=== PATIENT | female | born 1940 | race Caucasian/White ===

== ENCOUNTER 2018-07-31 07:50 | Emergency (ER) | payer OTHER ==
[2018-07-31] MEDS: SOD CHLORIDE 0.9% 1,000 ML IV (08:32)
[2018-07-31 08:38] LABS: ADD MAN DIFF? NO
[2018-07-31 08:43] LABS: WHITE BLOOD COUNT 7.7 10^3/ul (4.8-10.8)
[2018-07-31 08:43] LABS: BASOPHIL # 0.1 10^3/ul (0.0-0.1); BASOPHILS % 0.8 % (0.0-2.0); EOSINOPHILS % 0.4 % (0.0-7.0); HEMATOCRIT 30.6 % (37.0-47.0); HEMOGLOBIN 10.2 g/dl (12.0-16.0); LYMPHOCYTES # 0.8 10^3/ul (0.8-2.9); LYMPHOCYTES % 10.7 % (15.0-51.0); MEAN CORPUSCULAR HEMOGLOBIN 28.7 pg (29.0-33.0); MEAN CORPUSCULAR HGB CONC 33.3 g/dl (32.0-37.0); MONOCYTE # 0.6 10^3/ul (0.3-0.9); MONOCYTES % 7.5 % (0.0-11.0); NEUTROPHIL # 6.2 10^3/ul (1.6-7.5); NEUTROPHILS % 80.3 % (39.0-77.0); PLATELET COUNT 274 10^3/UL (140-415); RED BLOOD COUNT 3.56 10^6/ul (4.20-5.40); RED CELL DISTRIBUTION WIDTH 12.6 % (11.5-14.5)
[2018-07-31 09:01] LABS: INR 1.16; PT RATIO 1.2
[2018-07-31 09:02] LABS: PARTIAL THROMBOPLASTIN TIME 34.1 Sec (23.0-35.0)
[2018-07-31 09:06] LABS: ALANINE AMINOTRANSFERASE 20 IU/L (13-69); ALBUMIN 4.4 g/dl (3.3-4.9); ALBUMIN/GLOBULIN RATIO 1.25; ALKALINE PHOSPHATASE 91 IU/L (42-121); ANION GAP 15 (5-13); ASPARTATE AMINO TRANSFERASE 33 IU/L (15-46); BILIRUBIN,INDIRECT 0.8 mg/dl (0-1.1); BILIRUBIN,TOTAL 0.8 mg/dl (0.2-1.3); BLOOD UREA NITROGEN 24 mg/dl (7-20); CALCIUM 9.7 mg/dl (8.4-10.2); CARBON DIOXIDE 24 mmol/L (21-31); CHLORIDE 93 mmol/L (97-110); GLUCOSE 153 mg/dl (70-220); LIPASE 79 U/L (23-300); POTASSIUM 4.6 mmol/L (3.5-5.1); SODIUM 132 mmol/L (135-144); TOTAL PROTEIN 7.9 g/dl (6.1-8.1)
[2018-07-31 09:17] LABS: ADD UMIC YES; UR ASCORBIC ACID NEGATIVE (NEGATIVE); UR BILIRUBIN (Dip) NEGATIVE (NEGATIVE); UR BLOOD (Dip) NEGATIVE (NEGATIVE); UR CLARITY CLEAR (CLEAR); UR COLOR YELLOW (YELLOW); UR GLUCOSE (Dip) NEGATIVE (NEGATIVE); UR KETONES (Dip) TRACE mg/dL (NEGATIVE); UR LEUKOCYTE ESTERASE (Dip) TRACE Leu/ul (NEGATIVE); UR NITRITE (Dip) NEGATIVE (NEGATIVE); UR RBC 1 /HPF (0-5); UR SPECIFIC GRAVITY (Dip) 1.015 (1.003-1.030); UR TOTAL PROTEIN (Dip) NEGATIVE (NEGATIVE); UR UROBILINOGEN (Dip) NEGATIVE (NEGATIVE); UR WBC 4 /HPF (0-5)
[2018-07-31] MEDS: FUROSEMIDE 40 MG INJ IV (09:43)
== END 2018-07-31 09:52 | disposition home or self-care (01) ==
LOC: E/R 07:50
DX: R60.9 Edema, unspecified (principal); E11.9 Type 2 diabetes mellitus without complications; I11.0 Hypertensive heart disease with heart failure; I50.9 Heart failure, unspecified; Z79.84 Long term (current) use of oral hypoglycemic drugs; Z86.73 Personal history of transient ischemic attack (TIA), and cerebral infarction without residual deficits
CPT/HCPCS: 36415; 80053; 81001; 83690; 85025; 85610; 85730; 93005; 96374; 99284-25

== ENCOUNTER 2018-09-15 14:44 | Inpatient (IN) | payer OTHER ==
[2018-09-15] MEDS: ALBUTEROL 0.5% (NEB) 2.5 MG/0.5 ML AMP INH (17:24)
[2018-09-15 17:28] LABS: ADD MAN DIFF? NO
[2018-09-15] MEDS: IBUPROFEN 600 MG TAB PO (17:28)
[2018-09-15] MEDS: SODIUM CHLORIDE 0.9% 1L BAG IV* (17:28)
[2018-09-15] MEDS: CEFTRIAXONE 1 GM/50 ML (PMX) 50 ML IVPB (17:28)
[2018-09-15 17:38] LABS: WHITE BLOOD COUNT 9.9 10^3/ul (4.8-10.8)
[2018-09-15 17:38] LABS: BASOPHILS % 0.4 % (0.0-2.0); EOSINOPHILS % 0.1 % (0.0-7.0); HEMATOCRIT 32.1 % (37.0-47.0); HEMOGLOBIN 10.8 g/dl (12.0-16.0); LYMPHOCYTES # 0.8 10^3/ul (0.8-2.9); LYMPHOCYTES % 7.7 % (15.0-51.0); MEAN CORPUSCULAR HEMOGLOBIN 27.8 pg (29.0-33.0); MEAN CORPUSCULAR HGB CONC 33.6 g/dl (32.0-37.0); MEAN CORPUSCULAR VOLUME 82.5 fl (82.0-101.0); MONOCYTE # 0.7 10^3/ul (0.3-0.9); MONOCYTES % 6.7 % (0.0-11.0); NEUTROPHIL # 8.4 10^3/ul (1.6-7.5); NEUTROPHILS % 84.7 % (39.0-77.0); PLATELET COUNT 232 10^3/UL (140-415); RED BLOOD COUNT 3.89 10^6/ul (4.20-5.40); RED CELL DISTRIBUTION WIDTH 13.3 % (11.5-14.5)
[2018-09-15 17:54] LABS: ALANINE AMINOTRANSFERASE 14 IU/L (13-69); ALBUMIN 4.6 g/dl (3.3-4.9); ALBUMIN/GLOBULIN RATIO 1.21; ALKALINE PHOSPHATASE 95 IU/L (42-121); ANION GAP 18 (5-13); ASPARTATE AMINO TRANSFERASE 28 IU/L (15-46); BILIRUBIN,INDIRECT 0.5 mg/dl (0-1.1); BILIRUBIN,TOTAL 0.5 mg/dl (0.2-1.3); BLOOD UREA NITROGEN 15 mg/dl (7-20); CALCIUM 9.3 mg/dl (8.4-10.2); CARBON DIOXIDE 31 mmol/L (21-31); CHLORIDE 83 mmol/L (97-110); GLUCOSE 158 mg/dl (70-220); LIPASE 47 U/L (23-300); POTASSIUM 3.9 mmol/L (3.5-5.1); SODIUM 132 mmol/L (135-144); TOTAL PROTEIN 8.4 g/dl (6.1-8.1)
[2018-09-15 18:05] LABS: INR 1.66; PROTIME 19.7 Sec (11.9-14.9); PT RATIO 1.5; TROPONIN-I < 0.012 ng/ml (0.000-0.120)
[2018-09-15 18:06] LABS: PARTIAL THROMBOPLASTIN TIME 40.9 Sec (23.0-35.0)
[2018-09-15 18:09] LABS: ADD UMIC YES; UR ASCORBIC ACID NEGATIVE (NEGATIVE); UR BACTERIA FEW /HPF (NONE SEEN); UR BILIRUBIN (Dip) NEGATIVE (NEGATIVE); UR BLOOD (Dip) 2+ mg/dL (NEGATIVE); UR CLARITY CLOUDY (CLEAR); UR COLOR YELLOW (YELLOW); UR GLUCOSE (Dip) NEGATIVE (NEGATIVE); UR KETONES (Dip) NEGATIVE (NEGATIVE); UR LEUKOCYTE ESTERASE (Dip) 2+ Leu/ul (NEGATIVE); UR NITRITE (Dip) NEGATIVE (NEGATIVE); UR RBC 11 /HPF (0-5); UR SPECIFIC GRAVITY (Dip) 1.011 (1.003-1.030); UR SQUAMOUS EPITHELIAL CELL MODERATE /HPF (FEW); UR TOTAL PROTEIN (Dip) 1+ mg/dl (NEGATIVE); UR UROBILINOGEN (Dip) NEGATIVE (NEGATIVE); UR WBC > 182 /HPF (0-5)
[2018-09-15] MEDS: AZITHROMYCIN 500MG/NS (PMX) 250 ML IVPB (18:32)
[2018-09-15] MEDS ORDERED: GLUCAGON 1 MG INJ IM (19:00)
[2018-09-15] MEDS ORDERED: ONDANSETRON 4 MG INJ IV (19:00)
[2018-09-15] MEDS ORDERED: GLUCOSE GEL 15 GRAM TUBE PO ×2 (19:00)
[2018-09-15] MEDS ORDERED: GLUCOSE GEL 15 GRAM TUBE BUCCAL (19:00)
[2018-09-15] MEDS ORDERED: LABETALOL HCL 20MG INJ IV (19:00)
[2018-09-15] MEDS ORDERED: DEXTROSE 50% 50 ML SYRINGE IV ×2 (19:00)
[2018-09-15 22:03] LABS: LACTIC ACID 1.2 mmol/L (0.5-2.0)
[2018-09-15] MEDS: ALBUTEROL/IPRATROPIUM (NEB) 3 ML AMP HHN (22:28)
[2018-09-15] MEDS: INSULIN ASPART [NOVOLOG] 3 ML PEN SC (22:56)
[2018-09-15] MEDS: GUAIFENESIN/CODEINE 5ML CUP PO (23:00)
[2018-09-15] MEDS: LEVOFLOXACIN 500MG/D5W (PMX) 100 ML IVPB (23:05)
[2018-09-16] MEDS: ACCU-CHEK XX (02:00)
[2018-09-16] MEDS: CEPASTAT LOZENGE MT ×2 (03:00→05:40)
[2018-09-16] MEDS: ACETAMINOPHEN 325 MG TAB PO (05:40)
[2018-09-16 06:33] LABS: ADD MAN DIFF? NO
[2018-09-16 06:42] LABS: WHITE BLOOD COUNT 14.3 10^3/ul (4.8-10.8)
[2018-09-16 06:42] LABS: ABNORMAL IP MESSAGE 1; BASOPHILS % 0.1 % (0.0-2.0); HEMATOCRIT 29.6 % (37.0-47.0); LYMPHOCYTES # 0.5 10^3/ul (0.8-2.9); LYMPHOCYTES % 3.1 % (15.0-51.0); MEAN CORPUSCULAR HEMOGLOBIN 27.5 pg (29.0-33.0); MEAN CORPUSCULAR HGB CONC 33.8 g/dl (32.0-37.0); MEAN CORPUSCULAR VOLUME 81.5 fl (82.0-101.0); MEAN PLATELET VOLUME 10.2 fl (7.4-10.4); MONOCYTES % 6.7 % (0.0-11.0); NEUTROPHIL # 12.8 10^3/ul (1.6-7.5); NEUTROPHILS % 89.5 % (39.0-77.0); PLATELET COUNT 210 10^3/UL (140-415); RED BLOOD COUNT 3.63 10^6/ul (4.20-5.40); RED CELL DISTRIBUTION WIDTH 13.3 % (11.5-14.5)
[2018-09-16 06:47] LABS: POSITIVE DIFF @See below
[2018-09-16 07:06] LABS: ALANINE AMINOTRANSFERASE 20 IU/L (13-69); ALBUMIN 4.1 g/dl (3.3-4.9); ALBUMIN/GLOBULIN RATIO 1.24; ALKALINE PHOSPHATASE 83 IU/L (42-121); ANION GAP 15 (5-13); ASPARTATE AMINO TRANSFERASE 27 IU/L (15-46); BILIRUBIN,INDIRECT 0.6 mg/dl (0-1.1); BILIRUBIN,TOTAL 0.6 mg/dl (0.2-1.3); BLOOD UREA NITROGEN 18 mg/dl (7-20); CALCIUM 9.2 mg/dl (8.4-10.2); CARBON DIOXIDE 30 mmol/L (21-31); CHLORIDE 87 mmol/L (97-110); CREATININE 0.73 mg/dl (0.44-1.00); GLUCOSE 161 mg/dl (70-220); POTASSIUM 3.5 mmol/L (3.5-5.1); SODIUM 132 mmol/L (135-144); TOTAL PROTEIN 7.4 g/dl (6.1-8.1)
[2018-09-16 07:46] LABS: HEMOGLOBIN A1C 7.7 % (0-5.9)
[2018-09-16] MEDS: FUROSEMIDE 40 MG TAB PO (09:00)
[2018-09-16] MEDS: APIXABAN 5 MG TABLET PO ×2 (09:11→20:55)
[2018-09-16] MEDS: METOPROLOL (XL) 25 MG TAB PO (09:12)
[2018-09-16] MEDS: AMLODIPINE 10 MG TAB PO (09:12)
[2018-09-16] MEDS: SPIRONOLACTONE 25 MG TAB PO (09:13)
[2018-09-16] MEDS: BENAZEPRIL 10 MG TAB PO (09:13)
[2018-09-16] MEDS: FUROSEMIDE 40 MG INJ IV (09:13)
[2018-09-16] MEDS: INSULIN ASPART [NOVOLOG] 3 ML PEN SC ×4 (09:23→21:00)
[2018-09-16] MEDS: metFORMIN 850 MG TAB PO ×2 (11:48→17:29)
[2018-09-16] MEDS: ALBUTEROL/IPRATROPIUM (NEB) 3 ML AMP HHN ×3 (12:22→20:08)
[2018-09-16] MEDS: DIGOXIN 0.125 MG TAB PO (13:32)
[2018-09-16] MEDS: CEFEPIME 1GM/50 ML (PMX) 50 ML IVPB ×2 (15:28→20:57)
[2018-09-16] MEDS: ATORVASTATIN 10 MG TAB PO (20:54)
[2018-09-17] MEDS: ACCU-CHEK XX (02:00)
[2018-09-17 06:43] LABS: ADD MAN DIFF? NO; HAAIG REFLEX REFLEX FILED
[2018-09-17 06:50] LABS: WHITE BLOOD COUNT 11.1 10^3/ul (4.8-10.8)
[2018-09-17 06:50] LABS: BASOPHILS % 0.3 % (0.0-2.0); EOSINOPHILS % 0.1 % (0.0-7.0); HEMATOCRIT 29.7 % (37.0-47.0); HEMOGLOBIN 9.8 g/dl (12.0-16.0); LYMPHOCYTES # 0.9 10^3/ul (0.8-2.9); LYMPHOCYTES % 8.3 % (15.0-51.0); MEAN CORPUSCULAR HEMOGLOBIN 27.1 pg (29.0-33.0); MEAN CORPUSCULAR VOLUME 82.3 fl (82.0-101.0); MEAN PLATELET VOLUME 10.1 fl (7.4-10.4); MONOCYTE # 0.7 10^3/ul (0.3-0.9); MONOCYTES % 6.4 % (0.0-11.0); NEUTROPHIL # 9.4 10^3/ul (1.6-7.5); NEUTROPHILS % 84.3 % (39.0-77.0); PLATELET COUNT 221 10^3/UL (140-415); RED BLOOD COUNT 3.61 10^6/ul (4.20-5.40); RED CELL DISTRIBUTION WIDTH 13.5 % (11.5-14.5)
[2018-09-17 07:11] LABS: ALANINE AMINOTRANSFERASE 22 IU/L (13-69); ALBUMIN 3.9 g/dl (3.3-4.9); ALBUMIN/GLOBULIN RATIO 1.21; ALKALINE PHOSPHATASE 72 IU/L (42-121); ANION GAP 13 (5-13); ASPARTATE AMINO TRANSFERASE 24 IU/L (15-46); BILIRUBIN,INDIRECT 0.5 mg/dl (0-1.1); BILIRUBIN,TOTAL 0.5 mg/dl (0.2-1.3); BLOOD UREA NITROGEN 23 mg/dl (7-20); CALCIUM 9.1 mg/dl (8.4-10.2); CARBON DIOXIDE 31 mmol/L (21-31); CHLORIDE 90 mmol/L (97-110); CREATININE 0.76 mg/dl (0.44-1.00); GLUCOSE 153 mg/dl (70-220); POTASSIUM 3.8 mmol/L (3.5-5.1); SODIUM 134 mmol/L (135-144); TOTAL PROTEIN 7.1 g/dl (6.1-8.1)
[2018-09-17 07:39] LABS: HEPATITIS B SURFACE ANTIGEN NEGATIVE (NEGATIVE)
[2018-09-17 07:43] LABS: FERRITIN 41.7 ng/ml (11.1-264.0)
[2018-09-17] MEDS: ALBUTEROL/IPRATROPIUM (NEB) 3 ML AMP HHN ×3 (07:51→20:22)
[2018-09-17] MEDS: INSULIN ASPART [NOVOLOG] 3 ML PEN SC ×4 (07:55→22:32)
[2018-09-17] MEDS: metFORMIN 850 MG TAB PO ×2 (07:55→17:55)
[2018-09-17 07:56] LABS: HEPATITIS B CORE ANTIBODY NEGATIVE (NEGATIVE); HEPATITIS C VIRAL ANTIBODY NEGATIVE (NEGATIVE)
[2018-09-17] MEDS: SPIRONOLACTONE 25 MG TAB PO (09:20)
[2018-09-17] MEDS: APIXABAN 5 MG TABLET PO (09:20)
[2018-09-17] MEDS: FUROSEMIDE 40 MG TAB PO (09:21)
[2018-09-17] MEDS: AMLODIPINE 10 MG TAB PO (09:21)
[2018-09-17] MEDS: METOPROLOL (XL) 25 MG TAB PO (09:22)
[2018-09-17] MEDS: BENAZEPRIL 10 MG TAB PO (09:23)
[2018-09-17] MEDS: CEFEPIME 1GM/50 ML (PMX) 50 ML IVPB ×2 (09:23→22:28)
[2018-09-17 13:40] LABS: ADD MAN DIFF? NO
[2018-09-17 13:41] LABS: WHITE BLOOD COUNT 9.2 10^3/ul (4.8-10.8)
[2018-09-17 13:41] LABS: BASOPHILS % 0.4 % (0.0-2.0); EOSINOPHILS % 0.2 % (0.0-7.0); HEMATOCRIT 27.5 % (37.0-47.0); HEMOGLOBIN 9.2 g/dl (12.0-16.0); LYMPHOCYTES # 0.8 10^3/ul (0.8-2.9); LYMPHOCYTES % 8.3 % (15.0-51.0); MEAN CORPUSCULAR HEMOGLOBIN 27.8 pg (29.0-33.0); MEAN CORPUSCULAR HGB CONC 33.5 g/dl (32.0-37.0); MEAN CORPUSCULAR VOLUME 83.1 fl (82.0-101.0); MONOCYTE # 0.7 10^3/ul (0.3-0.9); MONOCYTES % 7.7 % (0.0-11.0); NEUTROPHIL # 7.6 10^3/ul (1.6-7.5); NEUTROPHILS % 82.9 % (39.0-77.0); PLATELET COUNT 213 10^3/UL (140-415); RED BLOOD COUNT 3.31 10^6/ul (4.20-5.40); RED CELL DISTRIBUTION WIDTH 13.7 % (11.5-14.5)
[2018-09-17] MEDS: DIGOXIN 0.125 MG TAB PO (13:43)
[2018-09-17] MEDS: IOHEXOL 300MG/ML 150 ML BTL (18:22)
[2018-09-17] MEDS: SOD CHLORIDE 0.9% 100 ML (18:22)
[2018-09-17] MEDS: ATORVASTATIN 10 MG TAB PO (22:28)
[2018-09-18] MEDS: ACCU-CHEK XX (02:00)
[2018-09-18 07:20] LABS: ANION GAP 7 (5-13); BLOOD UREA NITROGEN 24 mg/dl (7-20); CALCIUM 9.2 mg/dl (8.4-10.2); CARBON DIOXIDE 33 mmol/L (21-31); CHLORIDE 94 mmol/L (97-110); CREATININE 0.84 mg/dl (0.44-1.00); GLUCOSE 134 mg/dl (70-220); POTASSIUM 3.4 mmol/L (3.5-5.1); SODIUM 134 mmol/L (135-144)
[2018-09-18] MEDS: ALBUTEROL/IPRATROPIUM (NEB) 3 ML AMP HHN ×3 (07:29→20:22)
[2018-09-18] MEDS: AMLODIPINE 10 MG TAB PO (08:11)
[2018-09-18] MEDS: SPIRONOLACTONE 25 MG TAB PO (08:11)
[2018-09-18] MEDS: BENAZEPRIL 10 MG TAB PO (08:11)
[2018-09-18] MEDS: CEFEPIME 1GM/50 ML (PMX) 50 ML IVPB ×2 (08:11→20:40)
[2018-09-18] MEDS: METOPROLOL (XL) 25 MG TAB PO (08:12)
[2018-09-18] MEDS: FUROSEMIDE 40 MG TAB PO (08:12)
[2018-09-18] MEDS: INSULIN ASPART [NOVOLOG] 3 ML PEN SC ×4 (08:27→20:43)
[2018-09-18] MEDS: metFORMIN 850 MG TAB PO ×2 (08:28→17:10)
[2018-09-18 11:51] LABS: SMOOTH MUSCLE AB SCREEN POSITIVE (NEGATIVE); SMOOTH MUSCLE AB TITER 1:20 titer (<1:20)
[2018-09-18] MEDS: DIGOXIN 0.125 MG TAB PO (12:25)
[2018-09-18 14:37] LABS: TOTAL PROTEIN 6.8 g/dl (6.1-8.1)
[2018-09-18] MEDS: LIDOCAINE 1% (MPF) 5 ML VIAL (14:44)
[2018-09-18] MEDS: POTASSIUM CHLORIDE (SR) 20 MEQ TAB PO (17:10)
[2018-09-18] MEDS: ATORVASTATIN 10 MG TAB PO (20:40)
[2018-09-19] MEDS: ALBUTEROL/IPRATROPIUM (NEB) 3 ML AMP HHN ×4 (00:30→16:00)
[2018-09-19 01:38] LABS: AADO2 Arterial 310.9 mmHg (7.0-24.0); Allen Test ACCEPTAB; Arterial Base Excess 2.8 mmol/L (-3.0-3); Arterial Blood Gas Oxygen Sat 95.5 mmHG (95.0-100.0); Arterial COHb 0 % (0.0-3.0); Arterial Fraction of Oxyhgb 95.3 % (93.0-99.0); Arterial HCO3 26.6 mmol/L (22.0-26.0); Arterial MetHb 0.2 % (0.0-1.5); Arterial pCO2 37.9 mmhg (35-45); MODE MASK - SIMPLE; Site Right Radial
[2018-09-19] MEDS: ACCU-CHEK XX (02:33)
[2018-09-19] MEDS: LEVOFLOXACIN 500 MG TAB PO (06:00)
[2018-09-19 06:08] LABS: ADD MAN DIFF? NO
[2018-09-19 06:09] LABS: BASOPHIL # 0.1 10^3/ul (0.0-0.1); BASOPHILS % 0.7 % (0.0-2.0); EOSINOPHILS # 0.1 10^3/ul (0.0-0.5); EOSINOPHILS % 0.8 % (0.0-7.0); HEMATOCRIT 29.6 % (37.0-47.0); HEMOGLOBIN 9.8 g/dl (12.0-16.0); LYMPHOCYTES # 0.9 10^3/ul (0.8-2.9); LYMPHOCYTES % 11.5 % (15.0-51.0); MEAN CORPUSCULAR HGB CONC 33.1 g/dl (32.0-37.0); MEAN CORPUSCULAR VOLUME 81.5 fl (82.0-101.0); MEAN PLATELET VOLUME 9.8 fl (7.4-10.4); MONOCYTE # 0.6 10^3/ul (0.3-0.9); MONOCYTES % 8.1 % (0.0-11.0); NEUTROPHIL # 5.8 10^3/ul (1.6-7.5); NEUTROPHILS % 78.5 % (39.0-77.0); PLATELET COUNT 257 10^3/UL (140-415); RED BLOOD COUNT 3.63 10^6/ul (4.20-5.40); RED CELL DISTRIBUTION WIDTH 13.5 % (11.5-14.5)
[2018-09-19 06:09] LABS: WHITE BLOOD COUNT 7.4 10^3/ul (4.8-10.8)
[2018-09-19 06:46] LABS: ANION GAP 10 (5-13)
[2018-09-19 06:52] LABS: BLOOD UREA NITROGEN 29 mg/dl (7-20); CALCIUM 9.2 mg/dl (8.4-10.2); CARBON DIOXIDE 29 mmol/L (21-31); CHLORIDE 93 mmol/L (97-110); GLUCOSE 151 mg/dl (70-220); POTASSIUM 3.7 mmol/L (3.5-5.1); SODIUM 132 mmol/L (135-144)
[2018-09-19] MEDS: metFORMIN 850 MG TAB PO ×2 (07:55→17:10)
[2018-09-19] MEDS: INSULIN ASPART [NOVOLOG] 3 ML PEN SC ×4 (08:01→20:33)
[2018-09-19] MEDS: CEFEPIME 1GM/50 ML (PMX) 50 ML IVPB ×2 (08:42→20:11)
[2018-09-19] MEDS: AMLODIPINE 10 MG TAB PO (08:43)
[2018-09-19] MEDS: SPIRONOLACTONE 25 MG TAB PO (08:43)
[2018-09-19] MEDS: FUROSEMIDE 40 MG TAB PO ×2 (08:43→17:22)
[2018-09-19] MEDS: BENAZEPRIL 10 MG TAB PO (08:43)
[2018-09-19] MEDS: METOPROLOL (XL) 25 MG TAB PO (08:44)
[2018-09-19] MEDS: DIGOXIN 0.125 MG TAB PO (12:34)
[2018-09-19] MEDS ORDERED: GUAIFENESIN/DM 5ML CUP PO (16:00)
[2018-09-19] MEDS ORDERED: BISACODYL 10 MG SUPP PR (16:00)
[2018-09-19] MEDS ORDERED: BISACODYL (EC) 5 MG TAB PO (16:00)
[2018-09-19] MEDS: POLYETHYLENE GLYCOL 17 GM PACKET PO ×2 (16:09→20:11)
[2018-09-19] MEDS: ATORVASTATIN 10 MG TAB PO (20:11)
[2018-09-19] MEDS: FAMOTIDINE 20 MG TAB PO (20:11)
[2018-09-19] MEDS: SENNA/DOCUSATE NA (8.6MG/50MG) TAB PO (20:11)
[2018-09-19] MEDS: ENOXAPARIN 100 MG/ML SYG SC (20:32)
[2018-09-20] MEDS: ALBUTEROL/IPRATROPIUM (NEB) 3 ML AMP HHN ×3 (00:01→15:07)
[2018-09-20] MEDS: ACCU-CHEK XX (02:54)
[2018-09-20] MEDS: LEVOFLOXACIN 250 MG TAB PO (06:08)
[2018-09-20] MEDS: FUROSEMIDE 40 MG TAB PO ×2 (06:09→17:23)
[2018-09-20 06:37] LABS: ADD MAN DIFF? NO
[2018-09-20 06:40] LABS: BASOPHIL # 0.1 10^3/ul (0.0-0.1); BASOPHILS % 0.7 % (0.0-2.0); EOSINOPHILS # 0.1 10^3/ul (0.0-0.5); EOSINOPHILS % 1.4 % (0.0-7.0); HEMOGLOBIN 10.5 g/dl (12.0-16.0); LYMPHOCYTES % 13.8 % (15.0-51.0); MEAN CORPUSCULAR HEMOGLOBIN 27.7 pg (29.0-33.0); MEAN CORPUSCULAR HGB CONC 33.9 g/dl (32.0-37.0); MEAN CORPUSCULAR VOLUME 81.8 fl (82.0-101.0); MEAN PLATELET VOLUME 9.6 fl (7.4-10.4); MONOCYTE # 0.6 10^3/ul (0.3-0.9); MONOCYTES % 8.6 % (0.0-11.0); NEUTROPHIL # 5.4 10^3/ul (1.6-7.5); NEUTROPHILS % 74.9 % (39.0-77.0); PLATELET COUNT 260 10^3/UL (140-415); RED BLOOD COUNT 3.79 10^6/ul (4.20-5.40); RED CELL DISTRIBUTION WIDTH 13.3 % (11.5-14.5)
[2018-09-20 06:40] LABS: WHITE BLOOD COUNT 7.2 10^3/ul (4.8-10.8)
[2018-09-20 07:12] LABS: ALANINE AMINOTRANSFERASE 15 IU/L (13-69); ALBUMIN 3.7 g/dl (3.3-4.9); ALBUMIN/GLOBULIN RATIO 1.05; ALKALINE PHOSPHATASE 73 IU/L (42-121); ANION GAP 9 (5-13); ASPARTATE AMINO TRANSFERASE 22 IU/L (15-46); BILIRUBIN,INDIRECT 0.4 mg/dl (0-1.1); BILIRUBIN,TOTAL 0.4 mg/dl (0.2-1.3); BLOOD UREA NITROGEN 23 mg/dl (7-20); CALCIUM 9.1 mg/dl (8.4-10.2); CARBON DIOXIDE 29 mmol/L (21-31); CHLORIDE 92 mmol/L (97-110); CREATININE 0.99 mg/dl (0.44-1.00); GLUCOSE 152 mg/dl (70-220); POTASSIUM 3.9 mmol/L (3.5-5.1); SODIUM 130 mmol/L (135-144); TOTAL PROTEIN 7.2 g/dl (6.1-8.1); TROPONIN-I < 0.012 ng/ml (0.000-0.120)
[2018-09-20 07:16] LABS: FREE T4 (FREE THYROXINE) 2.17 ng/dl (0.78-2.44)
[2018-09-20 07:18] LABS: MAGNESIUM 1.4 mg/dl (1.7-2.5)
[2018-09-20 07:18] LABS: PHOSPHORUS 3.3 mg/dl (2.5-4.9)
[2018-09-20 07:30] LABS: THYROID STIMULATING HORMONE 0.451 MIU/L (0.465-4.680); TRIIODOTHYRONINE 0.69 ng/ml (0.97-1.69)
[2018-09-20] MEDS: INSULIN ASPART [NOVOLOG] 3 ML PEN SC ×4 (08:01→20:57)
[2018-09-20] MEDS: metFORMIN 850 MG TAB PO ×2 (08:17→17:23)
[2018-09-20] MEDS: POLYETHYLENE GLYCOL 17 GM PACKET PO ×2 (08:17→20:56)
[2018-09-20] MEDS: CEFEPIME 1GM/50 ML (PMX) 50 ML IVPB ×2 (08:17→20:56)
[2018-09-20] MEDS: AMLODIPINE 10 MG TAB PO (08:18)
[2018-09-20] MEDS: SPIRONOLACTONE 25 MG TAB PO (08:18)
[2018-09-20] MEDS: METOPROLOL (XL) 25 MG TAB PO (08:18)
[2018-09-20] MEDS: BENAZEPRIL 10 MG TAB PO (08:18)
[2018-09-20] MEDS: ENOXAPARIN 100 MG/ML SYG SC ×2 (08:27→21:03)
[2018-09-20] MEDS: DIGOXIN 0.125 MG TAB PO (12:18)
[2018-09-20] MEDS: NYSTATIN SUSP 5 ML CUP PO ×3 (13:54→20:55)
[2018-09-20] MEDS: NA PHOSPHATE/BIPHOS 133 ML ENEMA PR (13:54)
[2018-09-20] MEDS: FLUCONAZOLE 200 MG (PMX) 100 ML IVPB (14:47)
[2018-09-20] MEDS: MAGNESIUM SULFATE 2 GM/50 ML 50 ML IVPB (15:51)
[2018-09-20] MEDS: ATORVASTATIN 10 MG TAB PO (20:55)
[2018-09-20] MEDS: FAMOTIDINE 20 MG TAB PO (20:55)
[2018-09-20] MEDS: SENNA/DOCUSATE NA (8.6MG/50MG) TAB PO (20:56)
[2018-09-20] MEDS: LACTOBACILLUS RHAMNOSUS CAP PO (21:56)
[2018-09-20] MEDS: ACETAMINOPHEN 325 MG TAB PO (23:26)
[2018-09-21] MEDS: ALBUTEROL/IPRATROPIUM (NEB) 3 ML AMP HHN ×3 (01:16→17:55)
[2018-09-21] MEDS: ACCU-CHEK XX (02:00)
[2018-09-21] MEDS: LEVOFLOXACIN 250 MG TAB PO (05:53)
[2018-09-21] MEDS: FUROSEMIDE 40 MG TAB PO ×2 (05:53→17:26)
[2018-09-21 06:07] LABS: ADD MAN DIFF? NO
[2018-09-21 06:11] LABS: WHITE BLOOD COUNT 7.1 10^3/ul (4.8-10.8)
[2018-09-21 06:11] LABS: BASOPHILS % 0.6 % (0.0-2.0); EOSINOPHILS # 0.1 10^3/ul (0.0-0.5); EOSINOPHILS % 1.8 % (0.0-7.0); HEMATOCRIT 28.9 % (37.0-47.0); HEMOGLOBIN 9.7 g/dl (12.0-16.0); LYMPHOCYTES # 0.9 10^3/ul (0.8-2.9); MEAN CORPUSCULAR HEMOGLOBIN 27.5 pg (29.0-33.0); MEAN CORPUSCULAR HGB CONC 33.6 g/dl (32.0-37.0); MEAN CORPUSCULAR VOLUME 81.9 fl (82.0-101.0); MEAN PLATELET VOLUME 9.6 fl (7.4-10.4); MONOCYTE # 0.6 10^3/ul (0.3-0.9); MONOCYTES % 8.1 % (0.0-11.0); NEUTROPHIL # 5.4 10^3/ul (1.6-7.5); NEUTROPHILS % 76.1 % (39.0-77.0); PLATELET COUNT 260 10^3/UL (140-415); RED BLOOD COUNT 3.53 10^6/ul (4.20-5.40); RED CELL DISTRIBUTION WIDTH 13.2 % (11.5-14.5)
[2018-09-21 06:30] LABS: PHOSPHORUS 3.2 mg/dl (2.5-4.9)
[2018-09-21 06:30] LABS: MAGNESIUM 1.6 mg/dl (1.7-2.5)
[2018-09-21 06:36] LABS: ANION GAP 12 (5-13); BLOOD UREA NITROGEN 19 mg/dl (7-20); CALCIUM 9.1 mg/dl (8.4-10.2); CARBON DIOXIDE 29 mmol/L (21-31); CHLORIDE 87 mmol/L (97-110); CREATININE 0.96 mg/dl (0.44-1.00); GLUCOSE 138 mg/dl (70-220); POTASSIUM 3.4 mmol/L (3.5-5.1); SODIUM 128 mmol/L (135-144)
[2018-09-21 06:37] LABS: DIGOXIN 0.9 ng/ml (1.0-2.0)
[2018-09-21] MEDS: CEFEPIME 1GM/50 ML (PMX) 50 ML IVPB ×2 (08:18→21:14)
[2018-09-21] MEDS: NYSTATIN SUSP 5 ML CUP PO ×4 (08:18→21:14)
[2018-09-21] MEDS: POLYETHYLENE GLYCOL 17 GM PACKET PO ×2 (08:18→21:15)
[2018-09-21] MEDS: METOPROLOL (XL) 25 MG TAB PO (08:19)
[2018-09-21] MEDS: SPIRONOLACTONE 25 MG TAB PO (08:19)
[2018-09-21] MEDS: LACTOBACILLUS RHAMNOSUS CAP PO ×2 (08:20→21:15)
[2018-09-21] MEDS: BENAZEPRIL 10 MG TAB PO (08:20)
[2018-09-21] MEDS: AMLODIPINE 10 MG TAB PO (08:20)
[2018-09-21] MEDS: ENOXAPARIN 100 MG/ML SYG SC (08:25)
[2018-09-21] MEDS: INSULIN ASPART [NOVOLOG] 3 ML PEN SC ×4 (08:25→21:00)
[2018-09-21] MEDS: metFORMIN 850 MG TAB PO ×2 (09:01→17:26)
[2018-09-21] MEDS ORDERED: FUROSEMIDE 20 MG INJ IV (11:30)
[2018-09-21] MEDS: DIGOXIN 0.125 MG TAB PO (12:34)
[2018-09-21] MEDS: LIDOCAINE 1% (MPF) 5 ML VIAL (15:31)
[2018-09-21 15:45] LABS: FLD MN% 90.9 %; FLD PMN% 9.1 %; FLD RBC 2000 /uL; FLD WBC 548 /cmm
[2018-09-21 16:06] LABS: FLUID LD 291 U/L; FLUID TOTAL PROTEIN 2.7 g/dl; FLUID TYPE THORACENTESIS FLUID
[2018-09-21 16:07] LABS: FLUID GLUCOSE 140 mg/dl; FLUID TYPE THORACENTESIS FLUID
[2018-09-21 16:32] LABS: FLD TYPE PLEURAL
[2018-09-21 16:32] LABS: FLD CLARITY SLIGHTLY HAZY; FLD COLOR YELLOW
[2018-09-21 17:07] LABS: FREE T4 (FREE THYROXINE) 2.07 ng/dl (0.78-2.44)
[2018-09-21] MEDS: POTASSIUM CHLORIDE (SR) 10 MEQ TAB PO (17:26)
[2018-09-21] MEDS: MAGNESIUM SULFATE 2 GM/50 ML 50 ML IVPB (17:27)
[2018-09-21] MEDS: FAMOTIDINE 20 MG TAB PO (21:15)
[2018-09-21] MEDS: ATORVASTATIN 10 MG TAB PO (21:15)
[2018-09-21] MEDS: SENNA/DOCUSATE NA (8.6MG/50MG) TAB PO (21:15)
[2018-09-21 22:38] LABS: URIC ACID 6.7 mg/dl (3.1-7.9)
[2018-09-22] MEDS: ACCU-CHEK XX (02:00)
[2018-09-22] MEDS: FUROSEMIDE 40 MG TAB PO ×2 (05:36→17:11)
[2018-09-22] MEDS: LEVOFLOXACIN 250 MG TAB PO (05:36)
[2018-09-22] MEDS: INSULIN ASPART [NOVOLOG] 3 ML PEN SC ×4 (08:14→21:00)
[2018-09-22] MEDS: LACTOBACILLUS RHAMNOSUS CAP PO ×2 (08:15→21:00)
[2018-09-22] MEDS: BENAZEPRIL 10 MG TAB PO (08:15)
[2018-09-22] MEDS: POLYETHYLENE GLYCOL 17 GM PACKET PO ×2 (08:15→21:02)
[2018-09-22] MEDS: NYSTATIN SUSP 5 ML CUP PO ×4 (08:15→21:02)
[2018-09-22] MEDS: CEFEPIME 1GM/50 ML (PMX) 50 ML IVPB (08:16)
[2018-09-22] MEDS: AMLODIPINE 10 MG TAB PO (08:16)
[2018-09-22] MEDS: SPIRONOLACTONE 25 MG TAB PO (08:16)
[2018-09-22] MEDS: METOPROLOL (XL) 25 MG TAB PO (08:16)
[2018-09-22] MEDS: metFORMIN 850 MG TAB PO ×2 (08:17→17:10)
[2018-09-22 08:49] LABS: ADD MAN DIFF? NO
[2018-09-22] MEDS: ALBUTEROL/IPRATROPIUM (NEB) 3 ML AMP HHN ×4 (08:53→23:39)
[2018-09-22 08:55] LABS: BASOPHILS % 0.4 % (0.0-2.0); EOSINOPHILS # 0.1 10^3/ul (0.0-0.5); EOSINOPHILS % 1.1 % (0.0-7.0); HEMATOCRIT 31.6 % (37.0-47.0); HEMOGLOBIN 10.8 g/dl (12.0-16.0); LYMPHOCYTES # 0.6 10^3/ul (0.8-2.9); LYMPHOCYTES % 8.7 % (15.0-51.0); MEAN CORPUSCULAR HEMOGLOBIN 27.6 pg (29.0-33.0); MEAN CORPUSCULAR HGB CONC 34.2 g/dl (32.0-37.0); MEAN CORPUSCULAR VOLUME 80.8 fl (82.0-101.0); MEAN PLATELET VOLUME 9.7 fl (7.4-10.4); MONOCYTE # 0.4 10^3/ul (0.3-0.9); MONOCYTES % 6.2 % (0.0-11.0); NEUTROPHIL # 5.9 10^3/ul (1.6-7.5); PLATELET COUNT 307 10^3/UL (140-415); RED BLOOD COUNT 3.91 10^6/ul (4.20-5.40); RED CELL DISTRIBUTION WIDTH 13.2 % (11.5-14.5)
[2018-09-22 08:55] LABS: WHITE BLOOD COUNT 7.1 10^3/ul (4.8-10.8)
[2018-09-22 09:19] LABS: ANION GAP 6 (5-13); BLOOD UREA NITROGEN 15 mg/dl (7-20); CALCIUM 9.2 mg/dl (8.4-10.2); CARBON DIOXIDE 34 mmol/L (21-31); CHLORIDE 89 mmol/L (97-110); GLUCOSE 129 mg/dl (70-220); POTASSIUM 3.7 mmol/L (3.5-5.1); SODIUM 129 mmol/L (135-144)
[2018-09-22 09:32] LABS: PHOSPHORUS 3.2 mg/dl (2.5-4.9)
[2018-09-22 09:32] LABS: MAGNESIUM 1.5 mg/dl (1.7-2.5)
[2018-09-22 10:01] LABS: THYROID STIMULATING HORMONE 0.768 MIU/L (0.465-4.680)
[2018-09-22 10:26] LABS: ADD UMIC YES; UR ASCORBIC ACID NEGATIVE (NEGATIVE); UR BILIRUBIN (Dip) NEGATIVE (NEGATIVE); UR BLOOD (Dip) 1+ mg/dL (NEGATIVE); UR CLARITY CLEAR (CLEAR); UR COLOR STRAW (YELLOW); UR GLUCOSE (Dip) NEGATIVE (NEGATIVE); UR KETONES (Dip) NEGATIVE (NEGATIVE); UR LEUKOCYTE ESTERASE (Dip) NEGATIVE Leu/ul (NEGATIVE); UR NITRITE (Dip) NEGATIVE (NEGATIVE); UR RBC 0 /HPF (0-5); UR SPECIFIC GRAVITY (Dip) 1.005 (1.003-1.030); UR TOTAL PROTEIN (Dip) NEGATIVE (NEGATIVE); UR UROBILINOGEN (Dip) NEGATIVE (NEGATIVE); UR WBC 1 /HPF (0-5)
[2018-09-22 10:52] LABS: SODIUM,URINE RANDOM 98 mmol/L (30-90)
[2018-09-22] MEDS: MAGNESIUM SULFATE 2 GM/50 ML 50 ML IVPB (10:52)
[2018-09-22 10:56] LABS: CREATININE,URINE RANDOM 14.72 mg/dl (20-320)
[2018-09-22 11:05] LABS: OSMOLALITY 265 mOsm/kg (280-295)
[2018-09-22 11:06] LABS: OSMOLALITY,URINE 241 mOsm/kg (250-1200)
[2018-09-22] MEDS: DIGOXIN 0.125 MG TAB PO (12:22)
[2018-09-22] MEDS: FLUCONAZOLE 100 MG TAB PO (14:46)
[2018-09-22] MEDS: SENNA/DOCUSATE NA (8.6MG/50MG) TAB PO (21:02)
[2018-09-22] MEDS: FAMOTIDINE 20 MG TAB PO (21:02)
[2018-09-22] MEDS: ATORVASTATIN 10 MG TAB PO (21:02)
[2018-09-23] MEDS: ACCU-CHEK XX (02:00)
[2018-09-23] MEDS: FUROSEMIDE 40 MG TAB PO (05:48)
[2018-09-23] MEDS: LEVOFLOXACIN 250 MG TAB PO (05:48)
[2018-09-23 06:23] LABS: ADD MAN DIFF? NO
[2018-09-23 06:29] LABS: WHITE BLOOD COUNT 5.6 10^3/ul (4.8-10.8)
[2018-09-23 06:29] LABS: BASOPHILS % 0.7 % (0.0-2.0); EOSINOPHILS # 0.1 10^3/ul (0.0-0.5); EOSINOPHILS % 1.4 % (0.0-7.0); HEMATOCRIT 30.5 % (37.0-47.0); HEMOGLOBIN 10.4 g/dl (12.0-16.0); LYMPHOCYTES # 0.8 10^3/ul (0.8-2.9); LYMPHOCYTES % 14.5 % (15.0-51.0); MEAN CORPUSCULAR HGB CONC 34.1 g/dl (32.0-37.0); MEAN PLATELET VOLUME 9.8 fl (7.4-10.4); MONOCYTE # 0.6 10^3/ul (0.3-0.9); MONOCYTES % 10.8 % (0.0-11.0); NEUTROPHILS % 72.1 % (39.0-77.0); PLATELET COUNT 306 10^3/UL (140-415); RED BLOOD COUNT 3.72 10^6/ul (4.20-5.40); RED CELL DISTRIBUTION WIDTH 13.3 % (11.5-14.5)
[2018-09-23 07:31] LABS: ANION GAP 7 (5-13); BLOOD UREA NITROGEN 18 mg/dl (7-20); CALCIUM 9.4 mg/dl (8.4-10.2); CARBON DIOXIDE 34 mmol/L (21-31); CHLORIDE 90 mmol/L (97-110); CREATININE 1.35 mg/dl (0.44-1.00); GLUCOSE 140 mg/dl (70-220); MAGNESIUM 1.7 mg/dl (1.7-2.5); PHOSPHORUS 3.9 mg/dl (2.5-4.9); POTASSIUM 3.6 mmol/L (3.5-5.1); SODIUM 131 mmol/L (135-144)
[2018-09-23] MEDS: INSULIN ASPART [NOVOLOG] 3 ML PEN SC ×4 (07:51→20:02)
[2018-09-23] MEDS: NYSTATIN SUSP 5 ML CUP PO ×4 (08:14→20:02)
[2018-09-23] MEDS: METOPROLOL (XL) 25 MG TAB PO (08:14)
[2018-09-23] MEDS: FLUCONAZOLE 100 MG TAB PO (08:15)
[2018-09-23] MEDS: BENAZEPRIL 10 MG TAB PO (08:16)
[2018-09-23] MEDS: SPIRONOLACTONE 25 MG TAB PO (08:16)
[2018-09-23] MEDS: LACTOBACILLUS RHAMNOSUS CAP PO ×2 (08:16→20:03)
[2018-09-23] MEDS: AMLODIPINE 10 MG TAB PO (08:17)
[2018-09-23] MEDS: POLYETHYLENE GLYCOL 17 GM PACKET PO ×2 (08:18→20:03)
[2018-09-23] MEDS: ENOXAPARIN 100 MG/ML SYG SC (08:30)
[2018-09-23] MEDS: ALBUTEROL/IPRATROPIUM (NEB) 3 ML AMP HHN ×2 (08:51→15:15)
[2018-09-23] MEDS: metFORMIN 850 MG TAB PO (09:43)
[2018-09-23] MEDS: FUROSEMIDE 20 MG TAB PO (09:44)
[2018-09-23] MEDS: DIGOXIN 0.125 MG TAB PO (12:34)
[2018-09-23 15:32] LABS: CREATININE, RANDOM URINE 15 mg/dL (20-275); MICROALBUMIN 2.4 mg/dL; MICROALBUMIN/CREATININE RATIO 160 (<30)
[2018-09-23] MEDS ORDERED: APIXABAN 5 MG TABLET (19:56)
[2018-09-23] MEDS: FAMOTIDINE 20 MG TAB PO (20:03)
[2018-09-23] MEDS: APIXABAN 5 MG TABLET PO (20:03)
[2018-09-23] MEDS: SENNA/DOCUSATE NA (8.6MG/50MG) TAB PO (20:03)
[2018-09-23] MEDS: ATORVASTATIN 10 MG TAB PO (20:03)
[2018-09-24] MEDS: ALBUTEROL/IPRATROPIUM (NEB) 3 ML AMP HHN ×3 (00:03→17:24)
[2018-09-24] MEDS: ACCU-CHEK XX (02:00)
[2018-09-24] MEDS: LEVOFLOXACIN 250 MG TAB PO (05:15)
[2018-09-24 06:43] LABS: ADD MAN DIFF? NO
[2018-09-24 06:48] LABS: BASOPHIL # 0.1 10^3/ul (0.0-0.1); BASOPHILS % 0.9 % (0.0-2.0); EOSINOPHILS # 0.1 10^3/ul (0.0-0.5); EOSINOPHILS % 1.7 % (0.0-7.0); HEMATOCRIT 32.1 % (37.0-47.0); HEMOGLOBIN 10.9 g/dl (12.0-16.0); LYMPHOCYTES # 0.9 10^3/ul (0.8-2.9); LYMPHOCYTES % 17.1 % (15.0-51.0); MEAN CORPUSCULAR VOLUME 82.5 fl (82.0-101.0); MEAN PLATELET VOLUME 9.8 fl (7.4-10.4); MONOCYTE # 0.5 10^3/ul (0.3-0.9); MONOCYTES % 8.5 % (0.0-11.0); NEUTROPHIL # 3.8 10^3/ul (1.6-7.5); NEUTROPHILS % 71.4 % (39.0-77.0); PLATELET COUNT 338 10^3/UL (140-415); RED BLOOD COUNT 3.89 10^6/ul (4.20-5.40); RED CELL DISTRIBUTION WIDTH 13.5 % (11.5-14.5)
[2018-09-24 06:48] LABS: WHITE BLOOD COUNT 5.3 10^3/ul (4.8-10.8)
[2018-09-24 07:16] LABS: ANION GAP 9 (5-13); BLOOD UREA NITROGEN 20 mg/dl (7-20); CALCIUM 9.4 mg/dl (8.4-10.2); CARBON DIOXIDE 36 mmol/L (21-31); CHLORIDE 87 mmol/L (97-110); CREATININE 1.11 mg/dl (0.44-1.00); GLUCOSE 122 mg/dl (70-220); MAGNESIUM 1.4 mg/dl (1.7-2.5); POTASSIUM 3.9 mmol/L (3.5-5.1); SODIUM 132 mmol/L (135-144)
[2018-09-24] MEDS: NYSTATIN SUSP 5 ML CUP PO ×4 (08:42→20:30)
[2018-09-24] MEDS: FLUCONAZOLE 100 MG TAB PO (08:44)
[2018-09-24] MEDS: METOPROLOL (XL) 25 MG TAB PO (08:45)
[2018-09-24] MEDS: APIXABAN 5 MG TABLET PO ×2 (08:45→20:30)
[2018-09-24] MEDS: SPIRONOLACTONE 25 MG TAB PO (08:45)
[2018-09-24] MEDS: LACTOBACILLUS RHAMNOSUS CAP PO ×2 (08:45→20:31)
[2018-09-24] MEDS: FUROSEMIDE 20 MG TAB PO (08:45)
[2018-09-24] MEDS: AMLODIPINE 10 MG TAB PO (08:46)
[2018-09-24] MEDS: POLYETHYLENE GLYCOL 17 GM PACKET PO ×2 (08:46→20:31)
[2018-09-24] MEDS: INSULIN ASPART [NOVOLOG] 3 ML PEN SC ×4 (08:53→20:52)
[2018-09-24] MEDS: MAGNESIUM SULFATE 2 GM/50 ML 50 ML IVPB (10:45)
[2018-09-24] MEDS: DIGOXIN 0.125 MG TAB PO (13:42)
[2018-09-24] MEDS: SENNA/DOCUSATE NA (8.6MG/50MG) TAB PO (20:31)
[2018-09-24] MEDS: FAMOTIDINE 20 MG TAB PO (20:31)
[2018-09-24] MEDS: ATORVASTATIN 10 MG TAB PO (20:31)
[2018-09-25] MEDS: ALBUTEROL/IPRATROPIUM (NEB) 3 ML AMP HHN ×3 (00:22→15:43)
[2018-09-25] MEDS: ACCU-CHEK XX (02:00)
[2018-09-25] MEDS: LEVOFLOXACIN 250 MG TAB PO (05:45)
[2018-09-25 07:29] LABS: ANION GAP 6 (5-13); BLOOD UREA NITROGEN 20 mg/dl (7-20); CALCIUM 9.2 mg/dl (8.4-10.2); CARBON DIOXIDE 35 mmol/L (21-31); CHLORIDE 90 mmol/L (97-110); CREATININE 0.97 mg/dl (0.44-1.00); GLUCOSE 167 mg/dl (70-220); MAGNESIUM 1.6 mg/dl (1.7-2.5); POTASSIUM 3.6 mmol/L (3.5-5.1); SODIUM 131 mmol/L (135-144)
[2018-09-25 07:38] LABS: B-TYPE NATRIURETIC PEPTIDE 2090 PG/ML (0-450)
[2018-09-25] MEDS: INSULIN ASPART [NOVOLOG] 3 ML PEN SC ×3 (08:06→17:40)
[2018-09-25] MEDS: METOPROLOL (XL) 25 MG TAB PO (08:57)
[2018-09-25] MEDS: FUROSEMIDE 20 MG TAB PO (08:57)
[2018-09-25] MEDS: AMLODIPINE 10 MG TAB PO (08:58)
[2018-09-25] MEDS: LACTOBACILLUS RHAMNOSUS CAP PO (08:58)
[2018-09-25] MEDS: FLUCONAZOLE 100 MG TAB PO (08:58)
[2018-09-25] MEDS: SPIRONOLACTONE 25 MG TAB PO (08:59)
[2018-09-25] MEDS: NYSTATIN SUSP 5 ML CUP PO ×2 (08:59→14:20)
[2018-09-25] MEDS: APIXABAN 5 MG TABLET PO (08:59)
[2018-09-25] MEDS: POLYETHYLENE GLYCOL 17 GM PACKET PO (09:00)
[2018-09-25] MEDS: MAGNESIUM SULFATE 2 GM/50 ML 50 ML IVPB (10:39)
[2018-09-25] MEDS: DIGOXIN 0.125 MG TAB PO (14:19)
== END 2018-09-25 18:47 | disposition home or self-care (01) | DRG 871 ==
LOC: TEL 09-19 02:05 → E/R 14:44 → PP2 09-18 18:33 → TEL 18:12
PROVIDERS: Internal Medicine
PROC: 0W993ZX Drainage of Right Pleural Cavity, Percutaneous Approach, Diagnostic (ICD-10-PCS; principal; 2018-09-15)
PROC: 0W993ZX Drainage of Right Pleural Cavity, Percutaneous Approach, Diagnostic (ICD-10-PCS; 2018-09-21)
DX: A41.9 Sepsis, unspecified organism (principal); J18.9 Pneumonia, unspecified organism; I50.33 Acute on chronic diastolic (congestive) heart failure; J96.01 Acute respiratory failure with hypoxia; N39.0 Urinary tract infection, site not specified; N17.9 Acute kidney failure, unspecified; E22.2 Syndrome of inappropriate secretion of antidiuretic hormone; J90 Pleural effusion, not elsewhere classified; J98.11 Atelectasis; I11.0 Hypertensive heart disease with heart failure; I48.2 Chronic atrial fibrillation; E11.9 Type 2 diabetes mellitus without complications; I27.20 Pulmonary hypertension, unspecified; I25.10 Atherosclerotic heart disease of native coronary artery without angina pectoris; K74.60 Unspecified cirrhosis of liver; I69.998 Other sequelae following unspecified cerebrovascular disease; R25.1 Tremor, unspecified; E87.6 Hypokalemia; E83.42 Hypomagnesemia; Z79.899 Other long term (current) drug therapy; B96.20 Unspecified Escherichia coli [E. coli] as the cause of diseases classified elsewhere
CPT/HCPCS: 36415; 36600; 71045; 71260; 74176; 76705; 76942; 80048; 80053; 80162; 81001; 81003; 82043; 82533; 82728; 82803; 82945; 82962; 83036; 83605; 83615; 83690; 83735; 83880; 83930; 83935; 84100; 84155; 84157; 84300; 84439; 84443; 84480; 84484; 84560; 85025; 85610; 85730; 86255; 86704; 86709; 86803; 86850; 86900; 86901; 87040; 87070; 87081; 87086; 87102; 87116; 87340; 87400; 88104; 88305; 89051; 93005; 93306; 94640; 94644; 94664; 96365; 97116; 97162; 97530; 99291-25

== ENCOUNTER 2019-04-14 00:32 | Inpatient (IN) | payer OTHER ==
[2019-04-14] MEDS: DEXTROSE 5%-0.9% NACL 1,000 ML IV (01:06)
[2019-04-14 01:07] LABS: ADD MAN DIFF? NO
[2019-04-14 01:09] LABS: ABNORMAL IP MESSAGE 1; BASOPHILS % 0.5 % (0.0-2.0); EOSINOPHILS % 0.3 % (0.0-7.0); HEMATOCRIT 28.8 % (37.0-47.0); LYMPHOCYTES # 0.5 10^3/ul (0.8-2.9); LYMPHOCYTES % 7.8 % (15.0-51.0); MEAN CORPUSCULAR HEMOGLOBIN 28.4 pg (29.0-33.0); MEAN CORPUSCULAR HGB CONC 34.7 g/dl (32.0-37.0); MEAN CORPUSCULAR VOLUME 81.8 fl (82.0-101.0); MONOCYTE # 0.4 10^3/ul (0.3-0.9); NEUTROPHIL # 4.9 10^3/ul (1.6-7.5); NEUTROPHILS % 83.9 % (39.0-77.0); PLATELET COUNT 254 10^3/UL (140-415); POSITIVE DIFF @See below; RED BLOOD COUNT 3.52 10^6/ul (4.20-5.40); RED CELL DISTRIBUTION WIDTH 14.1 % (11.5-14.5)
[2019-04-14 01:09] LABS: WHITE BLOOD COUNT 5.9 10^3/ul (4.8-10.8)
[2019-04-14 01:28] LABS: ALANINE AMINOTRANSFERASE 22 IU/L (13-69); ALBUMIN/GLOBULIN RATIO 1.21; ALKALINE PHOSPHATASE 82 IU/L (42-121); ANION GAP 14 (5-13); ASPARTATE AMINO TRANSFERASE 32 IU/L (15-46); BILIRUBIN,INDIRECT 0.6 mg/dl (0-1.1); BILIRUBIN,TOTAL 0.6 mg/dl (0.2-1.3); BLOOD UREA NITROGEN 20 mg/dl (7-20); CALCIUM 9.3 mg/dl (8.4-10.2); CARBON DIOXIDE 27 mmol/L (21-31); CHLORIDE 80 mmol/L (97-110); CREATININE 0.94 mg/dl (0.44-1.00); GLUCOSE 96 mg/dl (70-220); POTASSIUM 3.5 mmol/L (3.5-5.1); SODIUM 121 mmol/L (135-144); TOTAL PROTEIN 7.3 g/dl (6.1-8.1)
[2019-04-14 01:39] LABS: TROPONIN-I < 0.012 ng/ml (0.000-0.120)
[2019-04-14] MEDS ORDERED: ONDANSETRON 4 MG INJ IV (02:30)
[2019-04-14] MEDS ORDERED: ACETAMINOPHEN 325 MG TAB PO (02:30)
[2019-04-14] MEDS ORDERED: NACL 0.9% 3 ML SYG IV (07:30)
[2019-04-14] MEDS: ALBUTEROL/IPRATROPIUM (NEB) 3 ML AMP HHN ×2 (07:45→23:24)
[2019-04-14] MEDS ORDERED: VANCOMYCIN IV PER PHARMACY XX (09:30)
[2019-04-14] MEDS ORDERED: FUROSEMIDE 40 MG INJ IV (09:30)
[2019-04-14 09:48] LABS: ANION GAP 13 (5-13); BLOOD UREA NITROGEN 18 mg/dl (7-20); CARBON DIOXIDE 23 mmol/L (21-31); CHLORIDE 85 mmol/L (97-110); GLUCOSE 114 mg/dl (70-220); POTASSIUM 3.8 mmol/L (3.5-5.1); SODIUM 121 mmol/L (135-144)
[2019-04-14] MEDS: FUROSEMIDE 20 MG TAB PO (10:40)
[2019-04-14] MEDS: AMLODIPINE 10 MG TAB PO (10:43)
[2019-04-14] MEDS: MAGNESIUM OXIDE 400 MG TAB PO (10:43)
[2019-04-14] MEDS: METOPROLOL (XL) 25 MG TAB PO (10:44)
[2019-04-14] MEDS: APIXABAN 5 MG TABLET PO ×2 (10:44→22:09)
[2019-04-14] MEDS: BENAZEPRIL 10 MG TAB PO (10:45)
[2019-04-14] MEDS: CALCIUM CARBONATE 1.25 GM TAB PO (10:45)
[2019-04-14] MEDS: CEFEPIME 1GM/50 ML (PMX) 50 ML IVPB (11:10)
[2019-04-14] MEDS: VANCOMYCIN 1.5 GM/NS 250 ML 250 ML IVPB (11:54)
[2019-04-14 12:48] LABS: INR 1.25; PROTIME 15.8 Sec (11.9-14.9); PT RATIO 1.2
[2019-04-14 13:55] LABS: ADD UMIC YES; UR ASCORBIC ACID NEGATIVE (NEGATIVE); UR BACTERIA FEW /HPF (NONE SEEN); UR BILIRUBIN (Dip) NEGATIVE (NEGATIVE); UR BLOOD (Dip) 1+ mg/dL (NEGATIVE); UR CLARITY CLEAR (CLEAR); UR COLOR YELLOW (YELLOW); UR GLUCOSE (Dip) NEGATIVE (NEGATIVE); UR KETONES (Dip) NEGATIVE (NEGATIVE); UR LEUKOCYTE ESTERASE (Dip) NEGATIVE Leu/ul (NEGATIVE); UR MUCUS FEW /HPF (NONE SEEN); UR NITRITE (Dip) NEGATIVE (NEGATIVE); UR RBC 1 /HPF (0-5); UR SPECIFIC GRAVITY (Dip) 1.014 (1.003-1.030); UR SQUAMOUS EPITHELIAL CELL FEW /HPF (FEW); UR TOTAL PROTEIN (Dip) NEGATIVE (NEGATIVE); UR UROBILINOGEN (Dip) NEGATIVE (NEGATIVE); UR WBC 2 /HPF (0-5)
[2019-04-14 14:02] LABS: CREATININE,URINE RANDOM 81.11 mg/dl (20-320)
[2019-04-14 14:04] LABS: SODIUM,URINE RANDOM < 13 mmol/L (30-90)
[2019-04-14 15:50] LABS: OSMOLALITY,URINE 375 mOsm/kg (250-1200)
[2019-04-14] MEDS: LIDOCAINE 1% (MPF) 5 ML VIAL (16:16)
[2019-04-14 19:14] LABS: ANION GAP 9 (5-13); BLOOD UREA NITROGEN 17 mg/dl (7-20); CALCIUM 9.3 mg/dl (8.4-10.2); CARBON DIOXIDE 26 mmol/L (21-31); CHLORIDE 86 mmol/L (97-110); CREATININE 0.78 mg/dl (0.44-1.00); GLUCOSE 144 mg/dl (70-220); POTASSIUM 4.1 mmol/L (3.5-5.1); SODIUM 121 mmol/L (135-144)
[2019-04-14] MEDS ORDERED: GLUCAGON 1 MG INJ IM (21:30)
[2019-04-14] MEDS ORDERED: DEXTROSE 50% 50 ML SYRINGE IV ×2 (21:30)
[2019-04-14] MEDS ORDERED: GLUCOSE GEL 15 GRAM TUBE BUCCAL (21:30)
[2019-04-14] MEDS ORDERED: GLUCOSE GEL 15 GRAM TUBE PO ×2 (21:30)
[2019-04-14] MEDS: ATORVASTATIN 10 MG TAB PO (22:08)
[2019-04-14 22:11] LABS: ANION GAP 8 (5-13); BLOOD UREA NITROGEN 18 mg/dl (7-20); CALCIUM 8.9 mg/dl (8.4-10.2); CARBON DIOXIDE 27 mmol/L (21-31); CHLORIDE 84 mmol/L (97-110); CREATININE 0.79 mg/dl (0.44-1.00); GLUCOSE 216 mg/dl (70-220)
[2019-04-14] MEDS: INSULIN ASPART [NOVOLOG] 3 ML PEN SC (22:34)
[2019-04-14 22:51] LABS: SODIUM 119 mmol/L (135-144)
[2019-04-15] MEDS: ACCU-CHEK XX (02:49)
[2019-04-15 06:49] LABS: ADD MAN DIFF? NO
[2019-04-15 06:55] LABS: ABNORMAL IP MESSAGE 1; BASOPHILS % 0.3 % (0.0-2.0); EOSINOPHILS % 0.3 % (0.0-7.0); HEMATOCRIT 27.3 % (37.0-47.0); HEMOGLOBIN 9.2 g/dl (12.0-16.0); LYMPHOCYTES # 0.5 10^3/ul (0.8-2.9); LYMPHOCYTES % 8.1 % (15.0-51.0); MEAN CORPUSCULAR HGB CONC 33.7 g/dl (32.0-37.0); MEAN PLATELET VOLUME 9.6 fl (7.4-10.4); MONOCYTE # 0.5 10^3/ul (0.3-0.9); MONOCYTES % 8.1 % (0.0-11.0); NEUTROPHIL # 5.2 10^3/ul (1.6-7.5); NEUTROPHILS % 82.7 % (39.0-77.0); PLATELET COUNT 236 10^3/UL (140-415); RED BLOOD COUNT 3.29 10^6/ul (4.20-5.40); RED CELL DISTRIBUTION WIDTH 14.1 % (11.5-14.5)
[2019-04-15 06:55] LABS: WHITE BLOOD COUNT 6.3 10^3/ul (4.8-10.8)
[2019-04-15 06:58] LABS: POSITIVE DIFF @See below
[2019-04-15 07:08] LABS: HEMOGLOBIN A1C 7.2 % (0-5.9)
[2019-04-15 07:33] LABS: ALANINE AMINOTRANSFERASE 21 IU/L (13-69); ALBUMIN 3.6 g/dl (3.3-4.9); ALBUMIN/GLOBULIN RATIO 1.16; ALKALINE PHOSPHATASE 70 IU/L (42-121); ANION GAP 9 (5-13); ASPARTATE AMINO TRANSFERASE 33 IU/L (15-46); BILIRUBIN,INDIRECT 0.8 mg/dl (0-1.1); BILIRUBIN,TOTAL 0.8 mg/dl (0.2-1.3); BLOOD UREA NITROGEN 18 mg/dl (7-20); CALCIUM 9.1 mg/dl (8.4-10.2); CARBON DIOXIDE 27 mmol/L (21-31); CHLORIDE 86 mmol/L (97-110); CREATININE 0.73 mg/dl (0.44-1.00); GLUCOSE 179 mg/dl (70-220); MAGNESIUM 1.7 mg/dl (1.7-2.5); POTASSIUM 4.2 mmol/L (3.5-5.1); SODIUM 122 mmol/L (135-144); TOTAL PROTEIN 6.7 g/dl (6.1-8.1)
[2019-04-15] MEDS: SOD CHLORIDE 0.9% 1,000 ML IV (07:55)
[2019-04-15] MEDS: INSULIN ASPART [NOVOLOG] 3 ML PEN SC ×6 (08:02→21:00)
[2019-04-15 08:39] LABS: PHOSPHORUS 3.7 mg/dl (2.5-4.9)
[2019-04-15] MEDS: BENAZEPRIL 10 MG TAB PO (08:42)
[2019-04-15] MEDS: APIXABAN 5 MG TABLET PO ×2 (08:42→21:50)
[2019-04-15] MEDS: CALCIUM CARBONATE 1.25 GM TAB PO (08:42)
[2019-04-15] MEDS: MAGNESIUM OXIDE 400 MG TAB PO (08:42)
[2019-04-15] MEDS: METOPROLOL (XL) 25 MG TAB PO (08:43)
[2019-04-15] MEDS: AMLODIPINE 10 MG TAB PO (08:43)
[2019-04-15] MEDS ORDERED: VANCOMYCIN 1.25 GM/NS 250 ML 250 ML IVPB (12:00)
[2019-04-15] MEDS: INSULIN GLARGINE [LANTus] (100 UNITS/ML) SYG SC (12:45)
[2019-04-15 13:50] LABS: ANION GAP 13 (5-13); BLOOD UREA NITROGEN 18 mg/dl (7-20); CALCIUM 9.3 mg/dl (8.4-10.2); CARBON DIOXIDE 24 mmol/L (21-31); CHLORIDE 85 mmol/L (97-110); GLUCOSE 162 mg/dl (70-220); POTASSIUM 4.5 mmol/L (3.5-5.1); SODIUM 122 mmol/L (135-144)
[2019-04-15 15:02] LABS: B-TYPE NATRIURETIC PEPTIDE 1950 PG/ML (0-450)
[2019-04-15 15:13] LABS: CREATININE, RANDOM URINE 80 mg/dL (20-275); MICROALBUMIN 2.3 mg/dL; MICROALBUMIN/CREATININE RATIO 29 (<30)
[2019-04-15] MEDS: ATORVASTATIN 10 MG TAB PO (21:50)
[2019-04-16] MEDS: ALBUTEROL/IPRATROPIUM (NEB) 3 ML AMP HHN (00:50)
[2019-04-16] MEDS: ACCU-CHEK XX (02:00)
[2019-04-16] MEDS: SOD CHLORIDE 0.9% 1,000 ML IV ×2 (02:54→23:30)
[2019-04-16 06:56] LABS: ADD MAN DIFF? NO
[2019-04-16 07:00] LABS: BASOPHIL # 0.1 10^3/ul (0.0-0.1); BASOPHILS % 0.8 % (0.0-2.0); EOSINOPHILS # 0.1 10^3/ul (0.0-0.5); EOSINOPHILS % 1.1 % (0.0-7.0); HEMATOCRIT 26.4 % (37.0-47.0); HEMOGLOBIN 8.9 g/dl (12.0-16.0); LYMPHOCYTES # 0.6 10^3/ul (0.8-2.9); LYMPHOCYTES % 9.7 % (15.0-51.0); MEAN CORPUSCULAR HEMOGLOBIN 28.3 pg (29.0-33.0); MEAN CORPUSCULAR HGB CONC 33.7 g/dl (32.0-37.0); MEAN CORPUSCULAR VOLUME 84.1 fl (82.0-101.0); MEAN PLATELET VOLUME 9.7 fl (7.4-10.4); MONOCYTE # 0.6 10^3/ul (0.3-0.9); NEUTROPHIL # 5.2 10^3/ul (1.6-7.5); NEUTROPHILS % 79.1 % (39.0-77.0); PLATELET COUNT 226 10^3/UL (140-415); RED BLOOD COUNT 3.14 10^6/ul (4.20-5.40); RED CELL DISTRIBUTION WIDTH 14.5 % (11.5-14.5)
[2019-04-16 07:00] LABS: WHITE BLOOD COUNT 6.6 10^3/ul (4.8-10.8)
[2019-04-16 07:28] LABS: ANION GAP 8 (5-13); BLOOD UREA NITROGEN 26 mg/dl (7-20); CARBON DIOXIDE 28 mmol/L (21-31); CHLORIDE 88 mmol/L (97-110); CREATININE 0.73 mg/dl (0.44-1.00); GLUCOSE 96 mg/dl (70-220); MAGNESIUM 1.8 mg/dl (1.7-2.5); PHOSPHORUS 3.9 mg/dl (2.5-4.9); POTASSIUM 4.6 mmol/L (3.5-5.1); SODIUM 124 mmol/L (135-144)
[2019-04-16] MEDS: INSULIN ASPART [NOVOLOG] 3 ML PEN SC ×7 (07:55→21:00)
[2019-04-16] MEDS: INSULIN GLARGINE [LANTus] (100 UNITS/ML) SYG SC (08:12)
[2019-04-16] MEDS: MAGNESIUM OXIDE 400 MG TAB PO (08:29)
[2019-04-16] MEDS: APIXABAN 5 MG TABLET PO ×2 (08:29→21:20)
[2019-04-16] MEDS: AMLODIPINE 10 MG TAB PO (08:29)
[2019-04-16] MEDS: BENAZEPRIL 10 MG TAB PO (08:29)
[2019-04-16] MEDS: CALCIUM CARBONATE 1.25 GM TAB PO (08:29)
[2019-04-16] MEDS: METOPROLOL (XL) 25 MG TAB PO (08:30)
[2019-04-16] MEDS ORDERED: LISINOPRIL 5 MG TAB PO (09:00)
[2019-04-16] MEDS ORDERED: METOPROLOL 25 MG TAB PO (09:00)
[2019-04-16] MEDS: MAGNESIUM SULFATE 1 GM/D5W 100 ML IVPB (11:55)
[2019-04-16] MEDS: METOPROLOL 50 MG TAB PO ×2 (12:30→21:21)
[2019-04-16] MEDS: ATORVASTATIN 10 MG TAB PO (21:21)
[2019-04-17] MEDS: ACCU-CHEK XX (02:00)
[2019-04-17] MEDS: INSULIN ASPART [NOVOLOG] 3 ML PEN SC ×5 (07:55→21:05)
[2019-04-17] MEDS: APIXABAN 5 MG TABLET PO ×2 (08:16→21:00)
[2019-04-17] MEDS: CALCIUM CARBONATE 1.25 GM TAB PO (08:16)
[2019-04-17] MEDS: MAGNESIUM OXIDE 400 MG TAB PO (08:17)
[2019-04-17] MEDS: METOPROLOL 50 MG TAB PO ×2 (08:19→21:00)
[2019-04-17] MEDS: BENAZEPRIL 10 MG TAB PO (08:19)
[2019-04-17] MEDS: INSULIN GLARGINE [LANTus] (100 UNITS/ML) SYG SC (08:25)
[2019-04-17 08:30] LABS: ADD MAN DIFF? NO
[2019-04-17 08:43] LABS: WHITE BLOOD COUNT 7.9 10^3/ul (4.8-10.8)
[2019-04-17 08:43] LABS: BASOPHILS % 0.5 % (0.0-2.0); EOSINOPHILS % 0.4 % (0.0-7.0); HEMATOCRIT 26.8 % (37.0-47.0); HEMOGLOBIN 9.2 g/dl (12.0-16.0); LYMPHOCYTES # 0.7 10^3/ul (0.8-2.9); LYMPHOCYTES % 9.2 % (15.0-51.0); MEAN CORPUSCULAR HEMOGLOBIN 28.8 pg (29.0-33.0); MEAN CORPUSCULAR HGB CONC 34.3 g/dl (32.0-37.0); MONOCYTE # 0.6 10^3/ul (0.3-0.9); MONOCYTES % 7.5 % (0.0-11.0); NEUTROPHIL # 6.4 10^3/ul (1.6-7.5); PLATELET COUNT 245 10^3/UL (140-415); RED BLOOD COUNT 3.19 10^6/ul (4.20-5.40); RED CELL DISTRIBUTION WIDTH 14.6 % (11.5-14.5)
[2019-04-17] MEDS ORDERED: AMLODIPINE 10 MG TAB PO (09:00)
[2019-04-17 09:27] LABS: ANION GAP 9 (5-13); BLOOD UREA NITROGEN 31 mg/dl (7-20); CALCIUM 9.2 mg/dl (8.4-10.2); CARBON DIOXIDE 26 mmol/L (21-31); CHLORIDE 90 mmol/L (97-110); GLUCOSE 72 mg/dl (70-220); PHOSPHORUS 4.3 mg/dl (2.5-4.9); POTASSIUM 4.9 mmol/L (3.5-5.1); SODIUM 125 mmol/L (135-144)
[2019-04-17 11:48] LABS: IRON 26 ug/dl (35-150)
[2019-04-17] MEDS: LINAGLIPTIN 5 MG TABLET PO (11:48)
[2019-04-17] MEDS: SPIRONOLACTONE 25 MG TAB PO (11:48)
[2019-04-17 11:58] LABS: % IRON SATURATION 6 % SAT (22-52); TOTAL IRON BINDING CAPACITY 430 ug/dl (241-421)
[2019-04-17] MEDS: BUMETANIDE 1 MG TAB PO (12:40)
[2019-04-17] MEDS: SOD FERRIC GLUC COMPLX 125 MG in SOD CHLORIDE 0.9% 100 ML IVPB (12:40)
[2019-04-17 14:02] LABS: FERRITIN 16.1 ng/ml (11.1-264.0)
[2019-04-17] MEDS: ALBUTEROL/IPRATROPIUM (NEB) 3 ML AMP HHN (20:34)
[2019-04-17] MEDS: ATORVASTATIN 10 MG TAB PO (21:00)
[2019-04-17] MEDS: BUMETANIDE 1 MG INJ IV (21:37)
[2019-04-17 22:02] LABS: Allen Test ACCEPTAB; Arterial Base Excess -1.1 mmol/L (-3.0-3); Arterial Blood Gas Oxygen Sat 89.1 mmHG (95.0-100.0); Arterial COHb 0.3 % (0.0-3.0); Arterial Fraction of Oxyhgb 88.7 % (93.0-99.0); Arterial HCO3 22.9 mmol/L (22.0-26.0); Arterial MetHb 0.2 % (0.0-1.5); Arterial pCO2 35.6 mmhg (35-45); MODE NASAL CANNULA; Site Right Brachial
[2019-04-18] MEDS: ACCU-CHEK XX (01:37)
[2019-04-18 06:33] LABS: ADD MAN DIFF? NO
[2019-04-18 06:40] LABS: WHITE BLOOD COUNT 5.7 10^3/ul (4.8-10.8)
[2019-04-18 06:40] LABS: BASOPHIL # 0.1 10^3/ul (0.0-0.1); BASOPHILS % 0.9 % (0.0-2.0); EOSINOPHILS % 0.5 % (0.0-7.0); HEMATOCRIT 28.2 % (37.0-47.0); HEMOGLOBIN 9.4 g/dl (12.0-16.0); LYMPHOCYTES # 0.8 10^3/ul (0.8-2.9); LYMPHOCYTES % 13.4 % (15.0-51.0); MEAN CORPUSCULAR HEMOGLOBIN 28.1 pg (29.0-33.0); MEAN CORPUSCULAR HGB CONC 33.3 g/dl (32.0-37.0); MEAN CORPUSCULAR VOLUME 84.2 fl (82.0-101.0); MONOCYTE # 0.6 10^3/ul (0.3-0.9); MONOCYTES % 9.7 % (0.0-11.0); NEUTROPHIL # 4.3 10^3/ul (1.6-7.5); NEUTROPHILS % 75.1 % (39.0-77.0); PLATELET COUNT 259 10^3/UL (140-415); RED BLOOD COUNT 3.35 10^6/ul (4.20-5.40); RED CELL DISTRIBUTION WIDTH 14.6 % (11.5-14.5)
[2019-04-18 07:13] LABS: ANION GAP 11 (5-13); BLOOD UREA NITROGEN 38 mg/dl (7-20); CALCIUM 9.2 mg/dl (8.4-10.2); CARBON DIOXIDE 27 mmol/L (21-31); CHLORIDE 89 mmol/L (97-110); CREATININE 0.86 mg/dl (0.44-1.00); GLUCOSE 100 mg/dl (70-220); MAGNESIUM 1.8 mg/dl (1.7-2.5); PHOSPHORUS 4.4 mg/dl (2.5-4.9); POTASSIUM 4.5 mmol/L (3.5-5.1); SODIUM 127 mmol/L (135-144)
[2019-04-18] MEDS: INSULIN ASPART [NOVOLOG] 3 ML PEN SC ×4 (07:53→20:24)
[2019-04-18] MEDS: SPIRONOLACTONE 25 MG TAB PO (08:46)
[2019-04-18] MEDS: BENAZEPRIL 10 MG TAB PO (08:46)
[2019-04-18] MEDS: APIXABAN 5 MG TABLET PO ×2 (08:46→20:17)
[2019-04-18] MEDS: BUMETANIDE 1 MG INJ IV (08:46)
[2019-04-18] MEDS: CALCIUM CARBONATE 1.25 GM TAB PO (08:46)
[2019-04-18] MEDS: METOPROLOL 50 MG TAB PO ×2 (08:47→20:17)
[2019-04-18] MEDS: MAGNESIUM OXIDE 400 MG TAB PO (08:47)
[2019-04-18] MEDS: LINAGLIPTIN 5 MG TABLET PO (08:47)
[2019-04-18] MEDS: SOD FERRIC GLUC COMPLX 125 MG in SOD CHLORIDE 0.9% 100 ML IVPB (11:58)
[2019-04-18] MEDS: BUMETANIDE 1 MG TAB PO ×2 (13:36→20:17)
[2019-04-18] MEDS: ATORVASTATIN 10 MG TAB PO (20:17)
[2019-04-19] MEDS: ACCU-CHEK XX (02:01)
[2019-04-19] MEDS: BUMETANIDE 1 MG TAB PO (05:42)
[2019-04-19] MEDS: INSULIN ASPART [NOVOLOG] 3 ML PEN SC ×4 (07:55→21:15)
[2019-04-19 08:06] LABS: ANION GAP 10 (5-13); BLOOD UREA NITROGEN 41 mg/dl (7-20); CALCIUM 9.2 mg/dl (8.4-10.2); CARBON DIOXIDE 29 mmol/L (21-31); CHLORIDE 88 mmol/L (97-110); CREATININE 0.88 mg/dl (0.44-1.00); GLUCOSE 113 mg/dl (70-220); MAGNESIUM 1.6 mg/dl (1.7-2.5); PHOSPHORUS 4.5 mg/dl (2.5-4.9); POTASSIUM 4.5 mmol/L (3.5-5.1); SODIUM 127 mmol/L (135-144)
[2019-04-19] MEDS: MAGNESIUM OXIDE 400 MG TAB PO (09:07)
[2019-04-19] MEDS: SPIRONOLACTONE 25 MG TAB PO (09:07)
[2019-04-19] MEDS: APIXABAN 5 MG TABLET PO ×2 (09:07→20:57)
[2019-04-19] MEDS: CALCIUM CARBONATE 1.25 GM TAB PO (09:07)
[2019-04-19] MEDS: LINAGLIPTIN 5 MG TABLET PO (09:07)
[2019-04-19] MEDS: METOPROLOL 50 MG TAB PO ×2 (09:08→20:58)
[2019-04-19] MEDS: BENAZEPRIL 10 MG TAB PO (09:08)
[2019-04-19] MEDS: MAGNESIUM SULFATE 2 GM/50 ML 50 ML IVPB (12:19)
[2019-04-19] MEDS: SOD FERRIC GLUC COMPLX 125 MG in SOD CHLORIDE 0.9% 100 ML IVPB (12:19)
[2019-04-19] MEDS: ONDANSETRON 4 MG INJ IV (15:39)
[2019-04-19] MEDS: ACETAMINOPHEN 325 MG TAB PO (15:46)
[2019-04-19] MEDS ORDERED: morphine 2 MG INJ IV (16:00)
[2019-04-19] MEDS: ATORVASTATIN 10 MG TAB PO (20:57)
[2019-04-20] MEDS: ACCU-CHEK XX (02:39)
[2019-04-20 06:34] LABS: ANION GAP 6 (5-13); BLOOD UREA NITROGEN 39 mg/dl (7-20); CALCIUM 8.8 mg/dl (8.4-10.2); CARBON DIOXIDE 32 mmol/L (21-31); CHLORIDE 88 mmol/L (97-110); CREATININE 1.06 mg/dl (0.44-1.00); GLUCOSE 172 mg/dl (70-220); MAGNESIUM 1.8 mg/dl (1.7-2.5); PHOSPHORUS 4.1 mg/dl (2.5-4.9); POTASSIUM 4.8 mmol/L (3.5-5.1); SODIUM 126 mmol/L (135-144)
[2019-04-20] MEDS: INSULIN ASPART [NOVOLOG] 3 ML PEN SC ×2 (07:42→11:41)
[2019-04-20] MEDS: SPIRONOLACTONE 25 MG TAB PO (08:15)
[2019-04-20] MEDS: LINAGLIPTIN 5 MG TABLET PO (08:15)
[2019-04-20] MEDS: APIXABAN 5 MG TABLET PO (08:15)
[2019-04-20] MEDS: BUMETANIDE 1 MG TAB PO (08:16)
[2019-04-20] MEDS: MAGNESIUM OXIDE 400 MG TAB PO (08:16)
[2019-04-20] MEDS: CALCIUM CARBONATE 1.25 GM TAB PO (08:16)
[2019-04-20] MEDS: METOPROLOL 50 MG TAB PO (08:16)
[2019-04-20] MEDS: BENAZEPRIL 10 MG TAB PO (08:16)
[2019-04-20] MEDS: SOD FERRIC GLUC COMPLX 125 MG in SOD CHLORIDE 0.9% 100 ML IVPB (13:00)
== END 2019-04-20 17:00 | disposition home health service (06) | DRG 637 ==
LOC: E/R 00:32 → TEL 02:28
PROVIDERS: Internal Medicine
PROC: 0W993ZZ Drainage of Right Pleural Cavity, Percutaneous Approach (ICD-10-PCS; principal; 2019-04-14)
DX: E11.649 Type 2 diabetes mellitus with hypoglycemia without coma (principal); I50.33 Acute on chronic diastolic (congestive) heart failure; J96.01 Acute respiratory failure with hypoxia; E87.1 Hypo-osmolality and hyponatremia; J90 Pleural effusion, not elsewhere classified; M80.88XA Other osteoporosis with current pathological fracture, vertebra(e), initial encounter for fracture; G92 Toxic encephalopathy; N17.9 Acute kidney failure, unspecified; I11.0 Hypertensive heart disease with heart failure; I48.2 Chronic atrial fibrillation; I27.20 Pulmonary hypertension, unspecified; I07.1 Rheumatic tricuspid insufficiency; K75.81 Nonalcoholic steatohepatitis (NASH); K74.60 Unspecified cirrhosis of liver; D63.8 Anemia in other chronic diseases classified elsewhere; E16.0 Drug-induced hypoglycemia without coma; I25.10 Atherosclerotic heart disease of native coronary artery without angina pectoris; E78.5 Hyperlipidemia, unspecified; I49.3 Ventricular premature depolarization; T38.3X5A Adverse effect of insulin and oral hypoglycemic [antidiabetic] drugs, initial encounter; Y92.019 Unspecified place in single-family (private) house as the place of occurrence of the external cause; Z79.4 Long term (current) use of insulin; Z79.02 Long term (current) use of antithrombotics/antiplatelets; Z86.73 Personal history of transient ischemic attack (TIA), and cerebral infarction without residual deficits
CPT/HCPCS: 36415; 36600; 71045; 71250; 76705; 76942; 80048; 80053; 81001; 81003; 82043; 82728; 82803; 82962; 83036; 83540; 83735; 83880; 83935; 84100; 84155; 84300; 84484; 85025; 85610; 93005; 93306; 94640; 94664; 97162; 99285-25; G0378